=== PATIENT | male | born 1955 | race Caucasian/White ===

== ENCOUNTER 2019-02-26 16:38 | Inpatient (IN) | payer OTHER ==
[~2019-02-26] VITALS: Ht 175.3 cm; Wt 59.0 kg
[~2019-02-26 16:38] MED LIST: BACI28.34 TOP; ENOX40DI14 SC; FAMO20TA18 PO; GLUC1KIT2 IM; HYDR-3671 PO; IPRA3AMP29 INHALATION; LORA2DIS2 IV; NICO1PAT38 TD; ONDA4AMP IV; PETR113O TOP; PIPE3.374 IVPB; VANC1PLA4 IV; [UNRECOGNIZED DRUG - CODE] IV; [UNRECOGNIZED DRUG - OTHER] IV
[2019-02-26 22:30] VITALS: BP 115/58; RESP 20
[2019-02-26] MEDS ORDERED: SOD CHLORIDE 0.9% 1,000 ML IV SCH (23:57)
[2019-02-27] VITALS (16 sets, daily range): BP systolic 117–165; BP diastolic 67–96; PULSE 101–155; RESP 18–31; Ht 175.3 cm; Wt 59.0 kg
[2019-02-27] MEDS ORDERED: ONDANSETRON 4 MG INJ IV PRN
[2019-02-27] MEDS ORDERED: MULTIVITAMINS 10 ML, THIAMINE 100 MG, FOLIC ACID 1 MG in SOD CHLORIDE 0.9% 1,000 ML IVPB SCH ×4
[2019-02-27] MEDS ORDERED: NACL 0.9% 3 ML SYG IV SCH
[2019-02-27] MEDS ORDERED: ACETAMINOPHEN 650 MG SUPP PR PRN
[2019-02-27] MEDS ORDERED: POTASSIUM CHLORIDE 40 MEQ in SOD CHLORIDE 0.9% 1,000 ML IV SCH ×4 (01:30)
[2019-02-27] MEDS: LORAZEPAM 2 MG INJ IV PRN ×3 (01:50→18:44)
[2019-02-27] MEDS ORDERED: DEXTROSE 50% 50 ML SYRINGE IV PRN (02:00)
[2019-02-27] MEDS ORDERED: GLUCOSE GEL 15 GRAM TUBE PO PRN ×2 (02:00)
[2019-02-27] MEDS ORDERED: GLUCAGON 1 MG INJ IM PRN (02:00)
[2019-02-27] MEDS ORDERED: THIAMINE 200 MG INJ IV SCH (02:00)
[2019-02-27] MEDS ORDERED: GLUCOSE GEL 15 GRAM TUBE BUCCAL PRN (02:00)
[2019-02-27] MEDS ORDERED: ACCU-CHEK XX SCH (02:00)
[2019-02-27] MEDS: THIAMINE 500 MG in SOD CHLORIDE 0.9% 100 ML IV SCH ×2 (03:18→12:50)
[2019-02-27] MEDS: POTASSIUM CHLORIDE 100 ML IVPB SCH ×2 (03:19→05:31)
[2019-02-27] MEDS: INSULIN ASPART [NOVOLOG] 3 ML PEN SC SCH ×5 (05:00→21:00)
[2019-02-27] MEDS ORDERED: VANCOMYCIN IV PER PHARMACY XX SCH (05:30)
[2019-02-27] MEDS: PIPER-TAZO 3.375 GM IV (PMX) 100 ML IVPB SCH ×4 (05:31→23:23)
[2019-02-27] MEDS: PANTOPRAZOLE 40 MG INJ IV SCH (05:32)
[2019-02-27] MEDS ORDERED: VANCOMYCIN 1 GM 250 ML IVPB SCH (07:00)
[2019-02-27] MEDS ORDERED: DILTIAZEM 25 MG INJ IV ONE ×4 (15:30→21:30)
[2019-02-27] MEDS ORDERED: CLONIDINE 0.2 MG/24 HR PATCH TRANSDERM SCH (18:00)
[2019-02-27] MEDS ORDERED: LORAZEPAM 2 MG INJ IV ONE (19:30)
[2019-02-27] MEDS ORDERED: LACTATED RINGER'S 1,000 ML IV ONE (19:30)
[2019-02-27] MEDS ORDERED: ALBUTEROL/IPRATROPIUM (NEB) 3 ML AMP HHN SCH ×2 (19:30→22:00)
[2019-02-27] MEDS ORDERED: SOD CHLORIDE 0.9% 500 ML IV ONE (19:30)
[2019-02-27] MEDS: VANCOMYCIN 750 MG (PMX) 250 ML IVPB SCH (21:18)
[2019-02-27] MEDS: PROPOFOL 100 ML IV SCH (22:23)
[2019-02-28] VITALS (90 sets, daily range): BP systolic 63–161; BP diastolic 38–86; PULSE 82–129; RESP 16–35
[2019-02-28] MEDS: THIAMINE 500 MG in SOD CHLORIDE 0.9% 100 ML IV SCH (00:34)
[2019-02-28] MEDS: INSULIN ASPART [NOVOLOG] 3 ML PEN SC SCH ×6 (01:00→21:00)
[2019-02-28] MEDS: PANTOPRAZOLE 40 MG INJ IV SCH (05:24)
[2019-02-28] MEDS: PIPER-TAZO 3.375 GM IV (PMX) 100 ML IVPB SCH ×3 (05:24→17:34)
[2019-02-28] MEDS: IPRATROPIUM (HFA) 12.9 GM INHALER INH SCH ×3 (08:13→19:20)
[2019-02-28] MEDS: ALBUTEROL HFA 8 GM INHALER INH SCH ×3 (08:14→19:20)
[2019-02-28] MEDS: VANCOMYCIN 750 MG (PMX) 250 ML IVPB SCH ×2 (08:38→21:48)
[2019-02-28] MEDS ORDERED: ALBUTEROL HFA 8 GM INHALER INH SCH (09:00)
[2019-02-28] MEDS ORDERED: IPRATROPIUM (HFA) 12.9 GM INHALER INH SCH (09:00)
[2019-02-28] MEDS: PROPOFOL 100 ML IV SCH ×2 (09:30→12:27)
[2019-02-28] MEDS: LORAZEPAM 2 MG INJ IV PRN (12:17)
[2019-02-28] MEDS: morphine 2 MG INJ IV PRN (12:49)
[2019-02-28] MEDS: SOD FERRIC GLUC COMPLX 125 MG in SOD CHLORIDE 0.9% 100 ML IVPB SCH (13:13)
[2019-02-28] MEDS ORDERED: LORAZEPAM 2 MG INJ IV ONE (14:00)
[2019-02-28] MEDS ORDERED: SOD CHLORIDE 0.9% 500 ML IV ONE (14:00)
[2019-02-28] MEDS: ACETAMINOPHEN 650MG/20.3ML CUP GTB PRN (14:08)
[2019-02-28] MEDS ORDERED: ENOXAPARIN 60 MG/0.6 ML SYG SC SCH (15:00)
[2019-02-28] MEDS ORDERED: ASPIRIN 81 MG TAB GTB SCH (20:00)
[2019-02-28] MEDS ORDERED: LORAZEPAM 2 MG INJ IV PRN (20:00)
[2019-02-28] MEDS: metroNIDAZOLE 500 MG TAB NGT SCH (21:16)
[2019-02-28] MEDS: LORAZEPAM 1 MG TAB PO PRN (21:17)
[2019-02-28] MEDS: FENTAnyl (DRIP) 1000 mcg/100mL 100 ML IV SCH (21:57)
[2019-03-01] VITALS (80 sets, daily range): BP systolic 49–161; BP diastolic 37–96; PULSE 77–149; RESP 16–36
[2019-03-01] MEDS: PIPER-TAZO 3.375 GM IV (PMX) 100 ML IVPB SCH ×3 (00:28→12:10)
[2019-03-01] MEDS: ACETAMINOPHEN 650MG/20.3ML CUP GTB PRN ×3 (00:40→23:43)
[2019-03-01] MEDS: LORAZEPAM 1 MG TAB PO PRN ×2 (00:40→19:57)
[2019-03-01] MEDS: INSULIN ASPART [NOVOLOG] 3 ML PEN SC SCH ×6 (00:49→21:00)
[2019-03-01] MEDS: metroNIDAZOLE 500 MG TAB NGT SCH ×3 (06:08→21:05)
[2019-03-01] MEDS: PANTOPRAZOLE 40 MG INJ IV SCH (06:08)
[2019-03-01] MEDS: IPRATROPIUM (HFA) 12.9 GM INHALER INH SCH ×3 (07:29→19:37)
[2019-03-01] MEDS: ALBUTEROL HFA 8 GM INHALER INH SCH ×3 (07:29→19:37)
[2019-03-01] MEDS ORDERED: MAGNESIUM SULFATE 3 GM in DEXTROSE 5% 100 ML IVPB ONE (08:00)
[2019-03-01] MEDS ORDERED: SOD CHLORIDE 0.9% 1,000 ML IV STA (08:17)
[2019-03-01] MEDS: PROPOFOL 100 ML IV SCH ×2 (08:22→21:30)
[2019-03-01] MEDS: VANCOMYCIN 750 MG (PMX) 250 ML IVPB SCH ×2 (09:40→21:05)
[2019-03-01] MEDS: POTASSIUM CHLORIDE 100 ML IVPB SCH ×3 (09:44→14:43)
[2019-03-01] MEDS: THIAMINE 100 MG TAB GTB SCH (09:59)
[2019-03-01] MEDS: MAGNESIUM SULFATE 1 GM/D5W 100 ML IVPB SCH ×3 (13:10→15:58)
[2019-03-01] MEDS ORDERED: NORepinephrine 8MG/250 ML (PMX 250 ML IV PRN (15:45)
[2019-03-01] MEDS ORDERED: MAGNESIUM SULFATE 1 GM/D5W 100 ML ONE (15:57)
[2019-03-01] MEDS ORDERED: ALBUMIN HUMAN 25% 100 ML IV ONE (16:00)
[2019-03-01] MEDS: ALBUMIN HUMAN 25% 100 ML IV SCH ×2 (16:41→23:43)
[2019-03-01] MEDS: SOD FERRIC GLUC COMPLX 125 MG in SOD CHLORIDE 0.9% 100 ML IVPB SCH (17:13)
[2019-03-01] MEDS ORDERED: METOPROLOL 5 MG INJ IV ONE (21:00)
[2019-03-01] MEDS: MEROPENEM 1 GM/50ML(PMX) 50 ML IVPB SCH (21:05)
[2019-03-01] MEDS: FENTAnyl (DRIP) 1000 mcg/100mL 100 ML IV SCH (22:35)
[2019-03-01] MEDS: morphine 2 MG INJ IV PRN (23:44)
[2019-03-02] VITALS (95 sets, daily range): BP systolic 51–145; BP diastolic 37–81; PULSE 84–139; RESP 16–52
[2019-03-02] MEDS: INSULIN ASPART [NOVOLOG] 3 ML PEN SC SCH ×6 (01:00→21:00)
[2019-03-02] MEDS: metroNIDAZOLE 500 MG TAB NGT SCH ×3 (05:53→23:24)
[2019-03-02] MEDS: PANTOPRAZOLE 40 MG INJ IV SCH (05:53)
[2019-03-02] MEDS: MEROPENEM 1 GM/50ML(PMX) 50 ML IVPB SCH ×3 (08:35→23:24)
[2019-03-02] MEDS: ALBUMIN HUMAN 25% 100 ML IV SCH (08:36)
[2019-03-02] MEDS: THIAMINE 100 MG TAB GTB SCH (08:36)
[2019-03-02] MEDS: PROPOFOL 100 ML IV SCH ×2 (08:37→21:30)
[2019-03-02] MEDS: IPRATROPIUM (HFA) 12.9 GM INHALER INH SCH ×3 (08:56→21:03)
[2019-03-02] MEDS: ALBUTEROL HFA 8 GM INHALER INH SCH ×3 (08:57→21:02)
[2019-03-02] MEDS: VANCOMYCIN 750 MG (PMX) 250 ML IVPB SCH ×2 (12:01→23:24)
[2019-03-02] MEDS: POTASSIUM CHLORIDE 100 ML IVPB SCH ×3 (12:01→16:01)
[2019-03-02] MEDS ORDERED: PENDING SANTYL ORDER FOR WOUND CARE XX PRN (12:30)
[2019-03-02] MEDS: SOD FERRIC GLUC COMPLX 125 MG in SOD CHLORIDE 0.9% 100 ML IVPB SCH (14:05)
[2019-03-02] MEDS: FLUCONAZOLE 100 MG/50 ML 50 ML IVPB SCH (14:09)
[2019-03-02] MEDS ORDERED: SOD CHLORIDE 0.9% 100 ML ONE (18:25)
[2019-03-02] MEDS ORDERED: IOHEXOL 300MG/ML 30 ML BTL ONE ×2 (18:25)
[2019-03-02] MEDS ORDERED: IOHEXOL 300MG/ML 150 ML BTL ONE (18:25)
[2019-03-02] MEDS: FENTAnyl (DRIP) 1000 mcg/100mL 100 ML IV SCH (19:16)
[2019-03-02] MEDS: BALSAM PERU/CASTOR OIL 60 GM TUBE TOP SCH (21:26)
[2019-03-02] MEDS: DEXTROSE 50% 50 ML SYRINGE IV PRN (21:26)
[2019-03-03] VITALS (62 sets, daily range): BP systolic 74–114; BP diastolic 50–67; PULSE 112–130; RESP 13–46
[2019-03-03] MEDS: INSULIN ASPART [NOVOLOG] 3 ML PEN SC SCH ×6 (00:59→20:40)
[2019-03-03] MEDS: DEXTROSE 50% 50 ML SYRINGE IV PRN ×2 (05:12→08:47)
[2019-03-03] MEDS: metroNIDAZOLE 500 MG TAB NGT SCH (05:13)
[2019-03-03] MEDS: PANTOPRAZOLE 40 MG INJ IV SCH (05:13)
[2019-03-03] MEDS: MEROPENEM 1 GM/50ML(PMX) 50 ML IVPB SCH ×3 (05:13→22:19)
[2019-03-03] MEDS: IPRATROPIUM (HFA) 12.9 GM INHALER INH SCH ×3 (08:11→19:40)
[2019-03-03] MEDS: ALBUTEROL HFA 8 GM INHALER INH SCH ×3 (08:12→19:40)
[2019-03-03] MEDS: BALSAM PERU/CASTOR OIL 60 GM TUBE TOP SCH (08:47)
[2019-03-03] MEDS: THIAMINE 100 MG TAB GTB SCH (08:48)
[2019-03-03] MEDS: PROPOFOL 100 ML IV SCH ×2 (08:48→21:30)
[2019-03-03] MEDS ORDERED: ZINC SULFATE 220 MG CAP NGT SCH (09:00)
[2019-03-03] MEDS ORDERED: ASCORBIC ACID 500 MG TAB NGT SCH (09:00)
[2019-03-03] MEDS: VANCOMYCIN 750 MG (PMX) 250 ML IVPB SCH ×2 (10:06→22:00)
[2019-03-03] MEDS: FENTAnyl (DRIP) 1000 mcg/100mL 100 ML IV SCH (11:22)
[2019-03-03] MEDS: FLUCONAZOLE 100 MG/50 ML 50 ML IVPB SCH (13:05)
[2019-03-03] MEDS ORDERED: DEXTROSE 5%-0.45% NACL 1,000 ML IV SCH (22:30)
[2019-03-04] VITALS (30 sets, daily range): BP systolic 69–118; BP diastolic 47–63; PULSE 111–137; RESP 16–38
[2019-03-04] MEDS: INSULIN ASPART [NOVOLOG] 3 ML PEN SC SCH ×2 (00:09→05:00)
[2019-03-04] MEDS: PANTOPRAZOLE 40 MG INJ IV SCH (05:25)
[2019-03-04] MEDS: MEROPENEM 1 GM/50ML(PMX) 50 ML IVPB SCH (05:25)
[2019-03-04] MEDS: FENTAnyl (DRIP) 1000 mcg/100mL 100 ML IV SCH (05:48)
[2019-03-04] MEDS: IPRATROPIUM (HFA) 12.9 GM INHALER INH SCH (08:32)
[2019-03-04] MEDS: ALBUTEROL HFA 8 GM INHALER INH SCH (08:32)
[2019-03-04] MEDS ORDERED: VANCOMYCIN 1 GM 250 ML IVPB SCH (10:00)
[2019-03-04] MEDS ORDERED: morphine (DRIP) 100 MG/100 ML 100 ML IV SCH (10:30)
== END 2019-03-04 18:23 | disposition expired | DRG 870 ==
LOC: TEL 22:36 → ICU 02-27 20:22
PROVIDERS: ADMIT Internal Medicine; ATTEND Family Medicine
PROC: 5A1955Z Respiratory Ventilation, Greater than 96 Consecutive Hours (ICD-10-PCS; principal; 2019-02-27)
PROC: 0BH18EZ Insertion of Endotracheal Airway into Trachea, Via Natural or Artificial Opening Endoscopic (ICD-10-PCS; 2019-02-27)
PROC: 30233N1 Transfusion of Nonautologous Red Blood Cells into Peripheral Vein, Percutaneous Approach (ICD-10-PCS; 2019-03-01)
DX: A41.9 Sepsis, unspecified organism (principal); J69.0 Pneumonitis due to inhalation of food and vomit; I21.A1 Myocardial infarction type 2; R65.21 Severe sepsis with septic shock; I63.232 Cerebral infarction due to unspecified occlusion or stenosis of left carotid arteries; J96.01 Acute respiratory failure with hypoxia; F10.239 Alcohol dependence with withdrawal, unspecified; Z68.1 Body mass index [BMI] 19.9 or less, adult; E22.2 Syndrome of inappropriate secretion of antidiuretic hormone; E46 Unspecified protein-calorie malnutrition; G93.40 Encephalopathy, unspecified; J90 Pleural effusion, not elsewhere classified; C77.0 Secondary and unspecified malignant neoplasm of lymph nodes of head, face and neck; E87.2 Acidosis; C14.0 Malignant neoplasm of pharynx, unspecified; D64.9 Anemia, unspecified; D53.1 Other megaloblastic anemias, not elsewhere classified; D63.0 Anemia in neoplastic disease; E87.6 Hypokalemia; E03.9 Hypothyroidism, unspecified; F17.200 Nicotine dependence, unspecified, uncomplicated; I87.2 Venous insufficiency (chronic) (peripheral); J43.9 Emphysema, unspecified; R62.7 Adult failure to thrive; R13.10 Dysphagia, unspecified; Z66 Do not resuscitate; Z59.0 Homelessness; Z79.02 Long term (current) use of antithrombotics/antiplatelets
CPT/HCPCS: 31500; 36430; 36600; 70491; 70551; 71045; 71260; 74177; 76536; 80048; 80053; 80061; 80202; 80307; 81001; 82270; 82607; 82728; 82746; 82803; 82962; 83036; 83540; 83605; 83735; 84100; 84145; 84443; 84484; 85014; 85018; 85025; 85335; 85384; 85610; 85651; 85730; 86140; 86704; 86706; 86708; 86709; 86803; 86850; 86900; 86901; 86920; 87070; 87075; 87081; 87086; 87340; 92950; 93005; 93306; 93970; 94003; 94640; 94770; C9113; J1450; J2060; J2185; J2270; J2543; J2916; J3010; J3370; J3411; J3475; J3480; J7030; J7040; J7042; J7120; P9016; P9047; Q9967